=== PATIENT | male | born 1965 | race Hispanic/Latino ===

== ENCOUNTER → 2016-09-13 | Outpatient (CLI) | payer BC ==
--- NOTE | 2016-09-13 11:02 | DI ---
MRI UP EXTREMITY W/O CN,09/13/2016 9:48 AM: Clinical History: Tendinitis of the right shoulder. Previous Exam: None at this facility. Findings: Multiplanar MR images are obtained through the right shoulder without contrast. Bony alignment is anatomic and no fractures are seen. There is degenerative hypertrophy of the right acromioclavicular joint causing some mass effect on the underlying supraspinatus tendon. There are some subchondral cysts noted within the distal clavicle. There is a trace amount of fluid surrounding the long head of biceps tendon. Rotator cuff: There are some cystic changes involving the attachment of the rotator cuff on the greater tubercle. There is a partial thickness tear of the undersurface of the distal supraspinatus tendon which extend s back to the myotendinous junction. The infraspinatus tendon demonstrates some minimal distal tendinosis. The subscapularis and teres minor tendons are unremarkable. There is a trace amount of fluid surround ing the tendon sheath of the long head of biceps tendon. There is some increased signal involving the undersurface of the superior glenoid labrum near the att achment of the long head of the biceps tendon. The major vascular flow voids are unremarkable. The acromion process demonstrates some mild lateral downsloping. There is no lymphadenopathy. There is some mild increased signal within the posterior inferior glenoi d labrum as well. Impression: 1. Small undersurface partial-thickness tear of the supraspinatus tendon which starts at the insertio n on the greater tubercle and extends into the myotendinous junction. 2. Mild tendinosis of the infraspinatus tendon. 3. Extensive inflammatory changes of the acromioclavicular joint causing some mass effect on the unde rlying supraspinatus tendon. 4. Trace amount of fluid surrounding the long head of the biceps tendon. 5. Mild increased signal near the attachment of the long head of the biceps tendon in the superior gl enoid labrum most likely representing a small undersurface tear. 6. Small amount of increased signal involving the posterior inferior right glenoid. This may represen t an old [place] lesion.
== END ==
LOC: MRI 09:43
PROVIDERS: ATTEND Orthopaedic Surgery
DX: M75.91 Shoulder lesion, unspecified, right shoulder (principal); S46.811A Strain of other muscles, fascia and tendons at shoulder and upper arm level, right arm, initial encounter
CPT/HCPCS: 73218